=== PATIENT | female | born 1950 | race Caucasian/White ===

== ENCOUNTER 2020-09-15 21:53 | Emergency (ER) | payer OTHER ==
[~2020-09-15] VITALS: Ht 162.6 cm; Wt 72.6 kg
[2020-09-15 22:17] LABS: MCV 69.5 fL (80.0-100.0); WBC 11.4 thou/uL (4.0-11.0)
[2020-09-15 22:19] LABS: MCH 16.6 pg (26.0-34.0); MCHC 23.9 g/dL (28.0-37.0); PLATELET COUNT 132 thou/uL (150-400); RBC 1.97 mil/uL (4.20-5.00); RDW 22.7 % (10.5-14.5)
[2020-09-15 22:27] LABS: BE(vivo) -23.3 mmol/L (-2 to +3); HCO3 7.1 mmol/L (22.0-26.0); PCO2 39.2 mmHg (35.0-45.0); PO2 352.3 mmHg (80.0-100.0); pH 6.876 (7.360-7.450); sO2 99.4 % (92.0-98.0)
[2020-09-15 22:32] LABS: HEMATOCRIT 13.7 % (37.0-47.0); HEMOGLOBIN 3.3 gm/dL (12.0-15.0); INR 1.3; PROTIME 13.1 Seconds (9.3-11.4)
[2020-09-15 22:51] LABS: ALBUMIN 2.7 g/dL (3.4-5.0); CALCIUM 7.7 mg/dL (8.5-10.1); CREATININE 1.1 mg/dL (0.6-1.0); POTASSIUM 3.8 mmol/L (3.5-5.1); TOTAL BILIRUBIN 0.6 mg/dL (0.2-1.0); TOTAL PROTEIN 5.8 g/dL (6.4-8.2)
[2020-09-15 23:10] VITALS: BP 0/0
[2020-09-15 23:43] LABS: NUCLEATED RBCS 1 /100WBC
[2020-09-15 23:44] LABS: ANISOCYTOSIS 3+; BURR CELLS 1+; HYPOCHROMASIA 3+; LARGE PLATELETS FEW; MICROCYTES 2+; PLATELET ESTIMATE DECREASED; POIKILOCYTOSIS 2+; SCHISTOCYTES 1+
--- NOTE | 2020-09-16 07:40 | EKG ---
[place] [address] [facility] [place] [address] ELECTROCARDIOGRAM REPORT Name: ABDIFATAH QUIROZ Room #: DEP AYO [place]#: [id number] Admission: 09/15/20 Attend Phys: Discharge: 09/15/20 Date of : 48 Report #: [id number] [facility] ED Test Date: 2020-09-15 Test Time: 22:00:58 Pat Name: ABDIFATAH QUIROZ Department: Room: Gender: F Eap Clinician: mpartushar : 1950 Requested By: Amanda Weathers Order Number: [id number] MD: Jesus Wallace Measurements Intervals [place] Rate: 99 P: 82 NE: 140 QRS: 70 QRSD: 99 T: 48 QT: 367 QTc: 471 Interpretive Statements Sinus tachycardia Ventricular premature complex Borderline ST depression, diffuse leads No previous ECG available for comparison Electronically Signed On 09-16-2020 7:40:40 [employer] by Jesus Wallace [email or web address] <ELECTRONICALLY SIGNED> By: Jesus Wallace MD, [facility] 09/16/20 0740 220 Jesus Wallace MD, FACC /EPI
== END 2020-09-15 23:10 ==
LOC: ER 21:53
PROVIDERS: Emergency Medicine
DX: I46.9 Cardiac arrest, cause unspecified (principal); K70.31 Alcoholic cirrhosis of liver with ascites; D64.9 Anemia, unspecified; R79.1 Abnormal coagulation profile